=== PATIENT | female | born 1945 | race Caucasian/White ===

== ENCOUNTER 2020-07-19 11:46 | Outpatient (CLI) | payer OTHER, MEDICARE, SELFPAY ==
--- NOTE | ~2020-07-19 | MMUS_ITS ---
EXAMINATION: MM diagnostic mammo BI, US breast LT limited HISTORY: Six-month follow-up for probably benign left breast masses which was due one year ago TECHNIQUE: Craniocaudal, mediolateral, and mediolateral oblique 3-D tomosynthesis images of the breas ts were performed and synthetic 2-D images were generated. CAD analysis was submitted and interpreted . High resolution limited left breast ultrasound was performed. COMPARISON: 03/19/2017, 07/31/2018, 04/23/2018 03/09/2015 BREAST PARENCHYMAL COMPOSITION: There are scattered areas of fibroglandular density. FINDINGS: MAMMOGRAPHIC FINDINGS: There is no evidence of suspicious mass, calcification, or architectural distortion in either breast to suggest malignancy. There has been no suspicious interval change. ULTRASOUND: There is a stable 4 mm round, circumscribed, hypoechoic mass with no posterior features or internal v ascularity at the 2:00 location 11 cm from the nipple. There are a stable 2 mm masses with similar so nographic features at the 2:00 location 10 cm and 11 cm from the nipple. IMPRESSION: 1. Stable left breast masses considered benign given two years of interval stability. 2. Recommend routine screening mammography in one year. BI-RADS Category 2: Benign finding(s). Reviewed, dictated and finalized at location A. IMPRESSION: 1. Stable left breast masses considered benign given two years of interval stab ility. 2. Recommend routine screening mammography in one year. BI-RADS Category 2: Benign finding(s).
== END 2020-07-19 11:47 | disposition home or self-care (01) ==
LOC: ANHIMG 11:56
DX: R92.8 Other abnormal and inconclusive findings on diagnostic imaging of breast (principal)
CPT/HCPCS: 76642; 77062; 77066; G0279

== ENCOUNTER 2022-03-29 17:13 | Emergency (ER) | payer OTHER, MEDICARE, SELFPAY ==
[2022-03-29] VITALS (9 sets, daily range): BP systolic 148–167; BP diastolic 70–85; PULSE 62–70; RESP 16–27; TEMP 36.4; O2SAT 100
--- NOTE | ~2022-03-29 | CT_ITS ---
EXAMINATION: CT brain wo con DATE: 03/29/2022 17:51 INDICATION: Head injury. TECHNIQUE: Computed tomography (CT) of the head was performed without intravenous contrast. The mA wa s adjusted according to patient size. Iterative reconstruction technique was employed. The dose-lengt h product was 1210.67 mGy-cm. COMPARISON: Head CT 03/27/2012 FINDINGS: There is chronic encephalomalacia in the bilateral frontal and parietal lobes and left occi pital lobe. There are scattered areas of low attenuation in the cerebral white matter. There is a 4.2 x 1.4 x 4.5 cm arachnoid cyst superolateral to right cerebellar hemisphere. There is no intracranial hemorrhage, acute infarction, or abnormal intracranial mass lesion. There is ex vacuo dilatation of the lateral ventricles. There is mild mucosal thickening in the paranasal sinuses. The orbits are nor mal. The mastoid air cells are normal. There is frontal scalp soft tissue swelling. IMPRESSION: 1. Chronic encephalomalacia in the bilateral frontal and parietal lobes and left occipital lobe. 2. Moderate nonspecific cerebral white matter disease, which likely represents chronic small vessel i schemic disease. Reviewed, dictated and finalized at location A. RVISOR PAYROLL IMPRESSION: 1. Chronic encephalomalacia in the bilateral frontal and parietal lobes and lef t occipital lobe. 2. Moderate nonspecific cerebral white matter disease, which likely represents chronic small vessel ischemic disease.
--- NOTE | ~2022-03-29 | CT_ITS ---
EXAMINATION: CT cervical spine wo con DATE: 03/29/2022 17:55 INDICATION: Head injury. TECHNIQUE: Computed tomography (CT) of the cervical spine was performed without intravenous contrast. Automated exposure control and iterative reconstruction technique were employed. The dose-length pro duct was 176.90 mGy-cm. COMPARISON: None FINDINGS: The lungs demonstrate mosaic attenuation, likely small airways disease. There is 17 degrees levoscoliosis of cervicothoracic spine. There is a compression fracture of T3 with 1/5 loss of heigh t. There is mildly decreased disc height at C4-C5, moderately decreased disc height at C5-C6, and sev erely decreased disc height at C6-C7. The following disc levels are specifically discussed: C2-C3: There is severe right and mild left uncovertebral joint osteoarthritis. There is moderate bila teral facet joint osteoarthritis. There is mild right neural foraminal stenosis. There is no central canal stenosis. C3-C4: There is no uncovertebral joint osteoarthritis. There is mild bilateral facet joint osteoarthr itis. There is no neural foraminal stenosis. There is no central canal stenosis. C4-C5: There is no uncovertebral joint osteoarthritis. There is mild bilateral facet joint osteoarthr itis. There is no neural foraminal stenosis. There is no central canal stenosis. C5-C6: There is severe right and moderate left uncovertebral joint osteoarthritis. There is mild bila teral facet joint osteoarthritis. There is mild right neural foraminal stenosis. There is no central canal stenosis. C6-C7: There is severe bilateral uncovertebral joint osteoarthritis. There is moderate right and mild left facet joint osteoarthritis. There is moderate right and mild left neural foraminal stenosis. Th ere is mild central canal stenosis. C7-T1: There is no uncovertebral joint osteoarthritis. There is moderate bilateral facet joint osteoa rthritis. There is no neural foraminal stenosis. There is no central canal stenosis. IMPRESSION: 1. T3 compression fracture, most likely chronic. 2. Severe cervical spondylosis. 3. Cervicothoracic levoscoliosis. Reviewed, dictated and finalized at location A. UTIVE OFFICE MANAGER
--- NOTE | 2022-03-29 21:32 | ECG_ITS ---
Measurements Intervals [place] Rate: 62 P: 64 MA: 263 QRS: -34 QRSD: 104 T: 48 QT: 529 QTc: 541 Interpretive Statements SINUS RHYTHM WITH FIRST DEGREE AV BLOCK LEFT AXIS DEVIATION DELAYED PRECORDIAL R/S TRANSITION MINIMAL Q WAVES- HIGH LATERAL LEADS BORDERLINE ST-T WAVE ABNORMALITY- DIFFUSE LEADS BASELINE ARTIFACT- I, II, III, AVR, AVL, AVF, V3-V6 ABNORMAL ECG NO PREVIOUS ECG AVAILABLE FOR COMPARISON Electronically Signed On 04-03-2022 13:23:17 DIE ATTACHING MACHINE TENDER by Josué Prabhakar D.O.
[2022-03-29 21:53] LABS: Add Urine Microscopic? YES; Appearance Urine Slightly Cloudy (Clear); Basophils Percent Auto 0.4 % (0.2-1.2); Bilirubin Urine Negative (Negative); Blood Urine Trace-Intact (Negative); Color Urine Yellow (Yellow); Eosinophils Absolute Auto 0.1 K/mm3 (0-0.3); Eosinophils Percent Auto 1.9 % (0-4.4); Glucose Urine UA Negative (Negative); Hematocrit 40.9 % (37.0-47.0); Hemoglobin 13.1 g/dL (12.0-15.0); Immature Granulocyte Absolute 0.03 K/mm3 (0.00-0.031); Immature Granulocyte Percent A 0.4 % (0-0.5); Ketones Urine Negative (Negative); Leukocyte Esterase Ur 3+ LEU/UL (Negative); Lymphocytes Absolute Auto 1.05 K/mm3 (0.9-3.2); Mean Corpuscular Hemoglobin 30.5 pg (26-34); Mean Corpuscular Volume 95.1 fl (80-100); Mean Platelet Volume 9.9 fl (7.4-10.4); Monocytes Absolute Auto 0.6 K/mm3 (0.1-0.6); Monocytes Percent Auto 8.1 % (2.6-8.5); Neutrophils Absolute Auto 5.2 K/mm3 (1.3-6.7); Neutrophils Percent Auto 74.2 % (45.5-73.1); Nitrate Urine Negative (Negative); Platelet Count Result 328 k/mm3 (150-375); Protein Urine Trace mg/dL (Negative); Red Cell Distribution Width 13.8 % (11.5-14.5); Specific Grav Ur 1.015 (1.001-1.035); Urobilinogen Urine 0.2 mg/dL (<2.0); pH Urine 6.5 (5.0-9.0)
[2022-03-29 21:59] LABS: Bacteria Urine Trace /hpf; Mucus Urine Rare /lpf; RBC Urine 0-2 /hpf (0-2); WBC Urine 51-75 /hpf
[2022-03-29 22:03] LABS: INR 1.3; Prothrombin Time 15.6 Seconds (11.1-14.7)
[2022-03-29 22:04] LABS: Alanine Aminotransferase 36 U/L (6-35); Albumin Level 3.8 g/dL (3.5-5.1); Alkaline Phosphatase 149 U/L (38-126); Anion Gap 5 mmol/L (8-16); Aspartate Amino Transferase 30 U/L (14-36); Bilirubin,Total 0.5 mg/dL (0.2-1.3); Blood Urea Nitrogen 19 mg/dL (7-17); Calcium 8.5 mg/dL (8.4-10.2); Carbon Dioxide 31 mmol/L (22-30); Chloride 105 mmol/L (98-107); Estimated CRCL calculation 54 ml/min; Estimated Glomerular Filt Rate > 60; Glucose 121 mg/dL (65-110); Potassium 3.4 mmol/L (3.4-5.0); Sodium 141 mmol/L (137-145)
--- NOTE | 2022-03-29 22:18 | ED.HEATRA ---
HPI - Head Injury General Chief complaint: Head Injury Stated complaint: HEAD VS DRESSER Time Seen by Provider: 03/29/22 21:09 Source: patient, family, EMS, RN notes reviewed and old records reviewed Mode of arrival: EMS Limitations: dementia History of Present Illness HPI Narrative: This is a 76 year old female with history of dementia who presents for evaluation of head injury. Patient has been at [facility] for weakness. Today patient states she was reaching for some paper and she hit her forehead. She is on Eliquis. Patient is alert oriented x 2 and her son states she is at her baseline. She denies any pain, dizziness, nausea or vomiting. She denies neck pain Related Data Home Medications Medication Instructions Recorded Confirmed albuterol sulfate 90 mcg/actuation inhalation 03/29/22 aerosol inhaler amiodarone 200 mg tablet mg 03/29/22 apixaban 5 mg tablet (Eliquis) mg 03/29/22 03/29/22 atorvastatin 40 mg tablet mg 03/29/22 diltiazem HCl 120 mg mg PO 03/29/22 capsule,extended release 24 hr furosemide 20 mg tablet mg 03/29/22 metoprolol tartrate 25 mg tablet mg 03/29/22 omeprazole 20 mg capsule,delayed mg 03/29/22 release potassium chloride 20 mEq oral meq 03/29/22 packet potassium chloride 20 mEq meq PO 03/29/22 tablet,extended release(part/cryst) Allergies Allergy/AdvReac Type Severity Reaction Status Date / Time azithromycin Allergy Unknown Verified 03/11/19 14:58 Review of Systems Review of Systems: All systems reviewed & are unremarkable except as noted in HPI and below Constitutional: Constitutional: Denies fatigue and Denies fever(s) Eyes: Eyes: Denies blurry vision ENT: Denies nasal congestion and Denies sinus pressure Cardiovascular: Cardiovascular: Denies chest pain, Denies rapid heart rate, Denies leg edema and Denies dyspnea Respiratory: Respiratory: Denies hemoptysis and Denies dyspnea Gastrointestinal: Gastrointestinal: Denies abdominal pain and Denies melena Musculoskeletal: Musculoskeletal: Denies numbness Neurologic: Denies Abnormal speech present, Denies focal weakness and Denies numbness Endocrine: Endocrine: Denies fatigue PMFSH Past Medical History Medical History (Updated 03/29/22 @ 22:27 by Shena Schaefer MD) Atrial fibrillation Hypertension Surgical History Surgical History (Updated 03/29/22 @ 22:23 by Shena Schaefer MD) Surgical history unknown Social History Social History (Updated 03/29/22 @ 22:23 by Shena Schaefer MD) Smoking status: Never smoker Exam Const: General: alert Nutritional Appearance: well nourished HENMT: Head: hematoma (right fo) right frontal and laceration (1 cm superficial laceration) Ears: external ears normal Throat: posterior oropharynx normal Eyes: Conjunctivae: conjunctivae normal Pupils: Equal, round and reactive pupils present EOM: EOMs intact bilaterally Neck: Neck: normal visual inspection Chest: Chest palpation & inspection: normal inspection of the chest Resp: Effort & Inspection: normal respiratory effort Auscultation: clear to auscultation bilaterally Cardio: Rate: regular rate Rhythm: regular rhythm Heart sounds: no murmurs GI: GI Palp: Yes Soft to palpation, No Tenderness to palpation present (GI), No Guarding due to palpation present (GI) and No Rigid due to palpation Auscultation: normal bowel sounds Skin: General skin exam: normal color Rashes: no rashes Wounds: no wounds Neuro: General: moves all extremities Cranial nerves: Yes CN's II-XII intact bilaterally Extrem: General: normal to inspection Psych: Mental Status: mental status grossly normal Affect: normal affect Attitude: cooperative Course Reevaluation(s) Reevaluation #1: Patient presented with fall . CT brain and cervical spine with due to age and confusion. She is at her baseline mental status per her son who is at bedside. I reviewed labs and CT brain. She had chronic compressio
[2022-03-29] MEDS: CEPHALEXIN 500 MG CAPSULE PO (22:54)
--- NOTE | 2022-03-29 23:13 | PC.NURSE ---
Pt being d/c back to [facility]. [phone] called and spoke with staff who gave this nurse number of unit for pt [phone] and called and left VM with call back number for nursing report. Called facility staff back at [phone] to state no response from unit at this time. Son still at bedside at this time and verbalized plan to follow pt in ambulance back to facility.
== END 2022-03-30 00:21 ==
PROVIDERS: Emergency Provider General Practice
DX: S01.81XA Laceration without foreign body of other part of head, initial encounter (principal); N39.0 Urinary tract infection, site not specified; F03.90 Unspecified dementia, unspecified severity, without behavioral disturbance, psychotic disturbance, mood disturbance, and anxiety; I48.91 Unspecified atrial fibrillation; I10 Essential (primary) hypertension; Z79.01 Long term (current) use of anticoagulants; M47.812 Spondylosis without myelopathy or radiculopathy, cervical region; M48.54XA Collapsed vertebra, not elsewhere classified, thoracic region, initial encounter for fracture; R90.82 White matter disease, unspecified; G93.89 Other specified disorders of brain; I44.0 Atrioventricular block, first degree; R94.31 Abnormal electrocardiogram [ECG] [EKG]; W01.190A Fall on same level from slipping, tripping and stumbling with subsequent striking against furniture, initial encounter
CPT/HCPCS: 12011; 36415; 70450; 72125; 80053; 81001; 85025; 85610; 85730; 87077; 87086; 87186; 93005; 99284; A9270

== ENCOUNTER 2024-03-09 18:53 | Emergency (ER) | payer MEDICARE, OTHER, SELFPAY ==
--- NOTE | ~2024-03-09 | CT_ITS ---
EXAMINATION: CT cervical spine wo con DATE: 03/09/2024 22:25 INDICATION: fall TECHNIQUE: Computed tomography (CT) of the cervical spine was performed without intravenous contrast. Automated exposure control and iterative reconstruction technique were employed. The dose-length pro duct was 183.27 mGy-cm. COMPARISON: 03/29/2022. FINDINGS: Vertebral Body Alignment: Intact. Craniocervical and atlantoaxial alignment: Moderate degenerative change. Alignment intact. Osseous structures/fracture: No evidence of a lytic or blastic process in the visualized spine. No e vidence of acute fracture. Stable mild height loss at T3. Cervical soft tissues: The paraspinal soft tissues planes are maintained. Degenerative changes: Degenerative changes, without severe neural foraminal or central canal narrowin g. IMPRESSION: No acute fracture or traumatic malalignment in the cervical spine. Reviewed, dictated and finalized at location K. TITATIVE ANALYST
--- NOTE | ~2024-03-09 | CT_ITS ---
EXAMINATION: CT brain wo con DATE: 03/09/2024 22:24 INDICATION: fall on anticoagulation . TECHNIQUE: Computed tomography (CT) of the head was performed without intravenous contrast. The mA wa s adjusted according to patient size. Iterative reconstruction technique was employed. The dose-lengt h product was 681.00 mGy-cm. COMPARISON: 03/29/2022. FINDINGS: No acute intracranial hemorrhage or extra-axial fluid collection. No hydrocephalus, mass, or herniation. No acute ischemic infarct. Unremarkable dural venous sinus attenuation. No acute osseous abnormality. Small frontal scalp contusion Left posterior ethmoid opacification, the remaining aerated spaces are clear. Moderate atrophy and chronic white matter change. Atherosclerotic intracranial calcification. Scatter ed areas of chronic encephalomalacia. Right posterior fossa arachnoid cyst. IMPRESSION: No acute intracranial process. Reviewed, dictated and finalized at location K. CTOR OF SPA AND GUEST EXPERIENCE
[2024-03-09 18:57] VITALS: BP 112/71; PULSE 86; RESP 18; TEMP 36.2; O2SAT 96
--- NOTE | 2024-03-09 22:26 | ED.HEATRA ---
HPI - Head Injury General Chief complaint: Head Injury Stated complaint: Fall, [place], takes blood thinners Time Seen by Provider: 03/09/24 21:51 Source: patient and family Mode of arrival: EMS Limitations: no limitations History of Present Illness HPI Narrative: Patient presents with a head injury she sustained after an accidental fall. She is in a wheelchair due to limited mobility from having multiple sclerosis and was putting ornaments on the [employer] tree when she leaned forward and accidentally fell out. Reports pain as 2 out of 10 pain. Has pain at the hematoma on her forehead. No loss of consciousness, she recalls the fall. Related Data Home Medications ?Medication ?Instructions ?Recorded ?Confirmed ?Last Taken ?Type albuterol sulfate 90 mcg/actuation inhalation 03/29/22 02/17/24 Unknown History aerosol inhaler amiodarone 200 mg tablet mg 03/29/22 02/17/24 Unknown History apixaban 5 mg tablet (Eliquis) mg 03/29/22 02/17/24 Unknown History atorvastatin 40 mg tablet mg 03/29/22 02/17/24 Unknown History diltiazem HCl 120 mg mg PO 03/29/22 02/17/24 Unknown History capsule,extended release 24 hr furosemide 20 mg tablet mg 03/29/22 02/17/24 Unknown History metoprolol tartrate 25 mg tablet mg 03/29/22 02/17/24 Unknown History omeprazole 20 mg capsule,delayed mg 03/29/22 02/17/24 Unknown History release potassium chloride 20 mEq oral meq 03/29/22 02/17/24 Unknown History packet potassium chloride 20 mEq meq PO 03/29/22 02/17/24 Unknown History tablet,extended release(part/cryst) Allergies Allergy/AdvReac Type Severity Reaction Status Date / Time azithromycin Allergy Unknown unkown Verified 02/17/24 15:16 [facility] Past Medical History Medical History Acute on chronic diastolic (congestive) heart failure Acute respiratory failure with hypoxia Atherosclerotic heart disease of [place] coronary artery without angina pectoris Atrial fibrillation paroxysmal COVID-19 Hypertension Hypertensive heart disease with heart failure Multiple sclerosis Old myocardial infarction Pneumonia due to coronavirus disease 2018 Surgical History Surgical History (Updated 03/29/22 @ 22:23 by Shena Schaefer MD) Surgical history unknown Social History Social History (Updated 03/09/24 @ 22:44 by Fernanda Medina MD) Social History: Do Not Resuscitate per snf documentation Smoking status: Never smoker Additional living arrangements comments: [place] Exam Narrative: GENERAL: Well-appearing, well-nourished, and in no acute distress. HEAD: Frontal forehead hematoma with ecchymosis. EYES: Non injected, non icteric ENT: Nares clear, no rhinorrhea or epistaxis. NECK: Supple. No tenderness to palpation of cervical spine, no bony step offs CHEST: Speaking in full sentences. No respiratory distress. HEART: Regular rate and rhythm. . ABDOMEN: Soft, nondistended. EXTREMITIES: Normal range of motion. No lower extremity edema. SKIN: Warm, dry, no rash. Skin intact. NEURO: No focal deficits. Alert and oriented. PSYCH: Normal mood and affect. Course Vital Signs Vital signs: Vital Signs Temperature 97.2 F L 03/09/24 18:57 Pulse Rate 86 03/09/24 18:57 Respiratory Rate 18 03/09/24 18:57 Blood Pressure 112/71 03/09/24 18:57 Pulse Oximetry 96 03/09/24 18:57 Temperature 98.6 F 03/10/24 00:13 Pulse Rate 88 03/10/24 00:13 Respiratory Rate 20 03/10/24 00:13 Blood Pressure 139/85 03/10/24 00:13 Pulse Oximetry 95 03/10/24 00:13 Oxygen Delivery Room Air 03/09/24 22:41 MDM - Head Injury MDM Narrative Medical decision making narrative: Patient presents with a head injury after accidentally falling out of her wheelchair when she leaned forward while putting ornaments on the [place] tree. In the emergency department they are afebrile with vital signs within normal limits. Eliquis listed on snf medication list. Patient given acetaminophen and an ice pack. Imaging negative for acute process. Discharged back to facility in stable condition. Differential Diagnosis Differential diagnosis: Likely concussion without loss of consciousness, epidural hematoma, closed head injury, subarachnoid hematoma, postconcussion syndrome and subdural hematoma Imaging Data Radiologist's impression: Impressions Head CT 03/09/24 22:34 IMPRESSION: No acute intracranial process. Cervical Spine CT 03/09/24 22:37 IMPRESSION: No acute fracture or traumatic malalignment in the cervical spine. Discharge Plan Discharge Clinical Impression: Accidental fall from wheelchair, Traumatic hematoma of forehead, Chronic anticoagulation Patient Disposition: [facility]As[facility] Living Condition: Stable Instructions: Antibiotic Form, Fall Prevention for Older Adults (ED), Hematoma (ED) Additional Instructions: No fracture in the bones of the neck and no bleeding in the brain. For the hematoma ( goose-egg ) on forehead, continue to give acetaminophen/Tylenol as needed for pain but avoid NSAIDs given the patient is on Eliquis. Patient can also apply ice as tolerated. Bruising and swelling may get slightly worse before it gets better. Follow-up with primary care physician/facility medical claims assistant. Return to the emergency department with any new or worsening symptoms. Patient Language: Bahamian Prescriptions: New acetaminophen 650 mg tablet extended release 650 mg PO Q8H PRN (Reason: pain) Qty: 30 0RF No Action atorvastatin 40 mg tablet amiodarone 200 mg tablet potassium chloride 20 mEq packet potassium chloride 20 mEq tablet,ER particles/crystals PO omeprazole 20 mg capsule,delayed release(DR/EC) diltiazem HCl 120 mg capsule,extended release 24hr PO furosemide 20 mg tablet albuterol sulfate 90 mcg/actuation HFA aerosol inhaler INHALATION metoprolol tartrate 25 mg tablet Eliquis 5 mg tablet cephalexin 500 mg capsule 500 mg PO Q12H 7 Days Qty: 14 0RF Follow-up/Referrals: Bishnu Maharaj MD [Physician] - (primary physician per snf documentatoin) UNKNOWN,DOCTOR [Primary Care Provider] - Stand Alone Forms: Senior Care Discharge Time of Disposition: 23:31
[2024-03-09 22:41] VITALS: BP 134/88; PULSE 87; RESP 20; TEMP 36.9; O2SAT 95
[2024-03-09 22:50] VITALS: BP 134/88; PULSE 88; RESP 20; TEMP 36.9; O2SAT 96
[2024-03-10 00:13] VITALS: BP 139/85; PULSE 88; RESP 20; TEMP 37; O2SAT 95
== END 2024-03-10 00:58 ==
PROVIDERS: Emergency Provider Student in an Organized Health Care Education/Training Program
DX: S00.83XA Contusion of other part of head, initial encounter (principal); I50.33 Acute on chronic diastolic (congestive) heart failure; I25.10 Atherosclerotic heart disease of native coronary artery without angina pectoris; I48.0 Paroxysmal atrial fibrillation; I11.0 Hypertensive heart disease with heart failure; I25.2 Old myocardial infarction; G35 Multiple sclerosis; Z66 Do not resuscitate; Z87.01 Personal history of pneumonia (recurrent); Z86.16 Personal history of COVID-19; W05.0XXA Fall from non-moving wheelchair, initial encounter
CPT/HCPCS: 70450; 72125; 99284